=== PATIENT | female | born 1960 | race Caucasian/White ===

== ENCOUNTER 2018-09-05 07:18 | Emergency (ER) | payer MEDICAID, OTHER ==
--- NOTE | 2018-09-05 07:25 | EDM.PDOC ---
ED HPI GENERAL MEDICAL PROBLEM - General Chief Complaint: Chest Pain Stated Complaint: BLOOD PRESSURE IS HIGH Time Seen by Provider: 09/05/18 07:19 Source of Information: Reports: Patient History Limitations: Reports: No Limitations - History of Present Illness INITIAL COMMENTS - FREE TEXT/NARRATIVE: History of present illness: []Patient arrives with an episode of high blood pressure this morning with less than 5 minute episode of chest pain which she states she has every morning. Pressure was 170s/100. Patient denies any sweating, shortness of breath, dizziness, syncope or any other symptoms. On arrival to the ER patient has no pain and feels normal. She would like to be checked out and is requesting a prescription refill for her nitroglycerin Review of systems: As per history of present illness and below otherwise all systems reviewed and negative. Past medical history: As per history of present illness and as reviewed below otherwise noncontributory. Surgical history: As per history of present illness and as reviewed below otherwise noncontributory. Social history: No reported history of drug or alcohol abuse. Family history: As per history of present illness and as reviewed below otherwise noncontributory. Physical exam: General: Well developed, well nourished in NAD HEENT: Atraumatic, normocephalic, pupils reactive, negative for conjunctival pallor or scleral icterus, mucous membranes moist, throat clear, neck supple, nontender, trachea midline. Lungs: Clear to auscultation, breath sounds equal bilaterally, chest nontender. Heart: S1S2, regular, negative for clicks, rubs, or JVD. Abdomen: NABS, Soft, nondistended, nontender. Negative for masses or hepatosplenomegaly. Negative for costovertebral tenderness. Pelvis: Stable nontender. Genitourinary: Deferred. Rectal: Deferred. Extremities: Atraumatic, negative for cords or calf pain. Neurovascular unremarkable. Neuro: Awake, alert, oriented. Cranial nerves II through XII unremarkable. Cerebellum unremarkable. Motor and sensory unremarkable throughout. Exam nonfocal. Skin:warm and dry Diagnostics: CBC, chemistry, troponin, EKG. Patient has incidental elevated alkaline phosphatase, however no abdominal pain Therapeutics: Clonidine by mouth ED Course: Improved with pressure Impression: Uncontrolled hypertension, med refill Prescriptions: Nitroglycerin Plan: Follow-up with primary care return if symptoms worsen or change. Definitive disposition and diagnosis as appropriate pending reevaluation and review of above. - Related Data Allergies Allergy/AdvReac Type Severity Reaction Status Date / Time Penicillins Allergy Cannot Verified 09/05/18 07:22 Remember Home Meds: Home Meds Aspirin [Halfprin] 81 mg PO DAILY 07/25/18 [History] Clopidogrel [Plavix] 75 mg PO DAILY 07/25/18 [History] Isosorbide Mononitrate [Imdur] 120 mg PO DAILY 07/25/18 [History] Metoprolol Tartrate 50 mg PO BID 07/25/18 [History] Ondansetron [Zofran] 8 mg PO Q8H PRN 07/25/18 [History] Ranitidine HCl [Heartburn Relief] 75 mg PO ASDIRECTED 07/25/18 [History] Ranolazine [Ranexa] 1,000 mg PO BID 07/25/18 [History] atorvaSTATin Calcium [Atorvastatin Calcium] 80 mg PO DAILY 07/25/18 [History] Nitroglycerin [Nitrostat] 1 tab ASDIRECTED PRN 08/11/18 [History] Nitroglycerin 0.4 mg SL ASDIRECTED PRN #1 bottle 09/05/18 [Rx] Past Medical History Cardiovascular History: Reports: Angina, High Cholesterol, Hypertension, Stents Gastrointestinal History: Reports: [employer]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 ED EXAM, GENERAL - Physical Exam Exam: See Below (See history of present illness) Course - Vital Signs Last Recorded V/S: Last Vital Signs Temp 97.2 F 09/05/18 08:33 Pulse 63 09/05/18 08:33 Resp 10 L 09/05/18 08:33 BP 124/75 09/05/18 08:33 Pulse Ox 94 L 09/05/18 08:33 - Orders/Labs/Meds Orders: Active Orders 24 hr Category Date Time Status EKG Documentation Completion [RC] STAT Care 09/05/18 07:28 Active Sodium Chloride 0.9% [Saline Flush] Med 09/05/18 07:29 Active 10 ml FLUSH ASDIRECTED PRN Sodium Chloride 0.9% [Saline Flush] Med 09/05/18 07:29 Active 2.5 ml FLUSH ASDIRECTED PRN Saline Lock Insert [OM.PC] Stat Oth 09/05/18 07:28 Ordered Medication Orders Sodium Chloride (Saline Flush) 10 ml FLUSH ASDIRECTED PRN PRN Reason: Keep Vein Open Sodium Chloride (Saline Flush) 2.5 ml FLUSH ASDIRECTED PRN PRN Reason: Keep Vein Open Labs: Laboratory Tests 09/05/18 09/05/18 Range/Units 07:30 07:30 WBC 6.90 (4.0-11.0) K/uL RBC 3.12 L (4.30-5.90) M/uL Hgb 9.9 L (12.0-16.0) g/dL Hct 30.6 L (36.0-46.0) % MCV 98.1 H (80.0-98.0) fL MCH 31.7 (27.0-32.0) pg MCHC 32.4 (31.0-37.0) g/dL RDW Std Deviation 45.7 (28.0-62.0) fl RDW Coeff of Salo 13 (11.0-15.0) % Plt Count 192 (150-400) K/uL MPV 10.60 (7.40-12.00) fL Neut % (Auto) 55.5 (48.0-80.0) % Lymph % (Auto) 29.4 (16.0-40.0) % Duchesne % (Auto) 8.8 (0.0-15.0) % Eos % (Auto) 5.7 (0.0-7.0) % Baso % (Auto) 0.6 (0.0-1.5) % Neut # (Auto) 3.8 (1.4-5.7) K/uL Lymph # (Auto) 2.0 (0.6-2.4) K/uL Duchesne # (Auto) 0.6 (0.0-0.8) K/uL Eos # (Auto) 0.4 (0.0-0.7) K/uL Baso # (Auto) 0.0 (0.0-0.1) K/uL Sodium 140 (136-145) mmol/L Potassium 4.3 (3.5-5.1) mmol/L Chloride 106 (98-107) mmol/L Carbon Dioxide 26.0 (21.0-32.0) mmol/L BUN 24 H (7.0-18.0) mg/dL Creatinine 1.9 H (0.6-1.0) mg/dL Est Cr Clr Drug Dosing 23.22 mL/min Estimated GFR (MDRD) 27.0 ml/min Glucose 87 (74-106) mg/dL Calcium 9.6 (8.5-10.1) mg/dL Total Bilirubin 0.3 (0.2-1.0) mg/dL AST 21 (15-37) IU/L ALT 40 (14-63) IU/L Alkaline Phosphatase 236 H (46-116) U/L Troponin I < 0.050 (0.000-0.056) ng/mL Total Protein 7.2 (6.4-8.2) g/dL Albumin 3.4 (3.4-5.0) g/dL Globulin 3.8 (2.6-4.0) g/dL Albumin/Globulin Ratio 0.9 (0.9-1.6) Meds: Medications Generic Name Dose Route Start Last Admin Trade Name Freq PRN Reason Stop Dose Admin Sodium Chloride 10 ml 09/05/18 07:29 Saline Flush FLUSH ASDIRECTED PRN Keep Vein Open Sodium Chloride 2.5 ml 09/05/18 07:29 Saline Flush FLUSH ASDIRECTED PRN Keep Vein Open Discontinued Medications Generic Name Dose Route Start Last Admin Trade Name Freq PRN Reason Stop Dose Admin Clonidine HCl 0.2 mg 09/05/18 07:33 09/05/18 07:44 Catapres PO 09/05/18 07:34 0.2 mg ONETIME ONE Administration Departure - Departure Time of Disposition: 08:40 Disposition: Home, Self-Care 01 Condition: Good Clinical Impression: Medication refill Prescriptions: Nitroglycerin 0.4 mg SL ASDIRECTED PRN #1 bottle PRN Reason: Chest Pain Referrals: PCP,None [Primary Care Provider] - Forms: ED Department Discharge Additional Instructions: The following information is given to patients seen in the emergency department who are being discharged to home. This information is to outline your options for follow-up care. We provide all patients seen in our emergency department with a follow-up referral. The need for follow-up, as well as the timing and circumstances, are variable depending upon the specifics of your emergency department visit. If you don't have a primary care physician on staff, we will provide you with a referral. We always advise you to contact your personal physician following an emergency department visit to inform them of the circumstance of the visit and for follow-up with them and/or the need for any referrals to a consulting specialist. The emergency department will also refer you to a specialist when appropriate. This referral assures that you have the opportunity for follow-up care with a specialist. All of these measure are taken in an effort to provide you with optimal care, which includes your follow-up. Under all circumstances we always encourage you to contact your private physician who remains a resource for coordinating your care. When calling for follow-up care, please make the office aware that this follow-up is from your recent emergency room visit. If for any reason you are refused follow-up, please contact the [facility] Emergency Department at and asked to speak to the emergency department charge nurse. [facility] [address] [place] [id number] - My Orders Last 24 Hours: My Active Orders 09/05/18 07:28 EKG Documentation Completion [RC] STAT Saline Lock Insert [OM.PC] Stat 09/05/18 07:29 Sodium Chloride 0.9% [Saline Flush] 10 ml FLUSH ASDIRECTED PRN Sodium Chloride 0.9% [Saline Flush] 2.5 ml FLUSH ASDIRECTED PRN - Assessment/Plan Last 24 Hours: My Active Orders 09/05/18 07:28 EKG Documentation Completion [RC] STAT Saline Lock Insert [OM.PC] Stat 09/05/18 07:29 Sodium Chloride 0.9% [Saline Flush] 10 ml FLUSH ASDIRECTED PRN Sodium Chloride 0.9% [Saline Flush] 2.5 ml FLUSH ASDIRECTED PRN
[2018-09-05] MEDS ORDERED: Sodium Chloride 0.9% 10 ML Syringe FLUSH PRN (07:29)
[2018-09-05] MEDS ORDERED: Sodium Chloride 0.9% 2.5 ML Syringe FLUSH PRN (07:29)
[2018-09-05] MEDS ORDERED: cloNIDine 0.1 MG Tab PO ONE (07:33)
[2018-09-05 08:07] LABS: CHLORIDE,CL 106 mmol/L (98-107); SODIUM,NA 140 mmol/L (136-145)
== END 2018-09-05 08:48 | disposition home or self-care (01) ==
LOC: MW.ED 07:18
DX: I10 Essential (primary) hypertension (principal); Z95.5 Presence of coronary angioplasty implant and graft; Z86.73 Personal history of transient ischemic attack (TIA), and cerebral infarction without residual deficits; Z90.49 Acquired absence of other specified parts of digestive tract; Z90.710 Acquired absence of both cervix and uterus; Z79.82 Long term (current) use of aspirin; Z79.899 Other long term (current) drug therapy; Z88.0 Allergy status to penicillin
CPT/HCPCS: 36415; 80053; 84484; 85025; 99284; A9270

== ENCOUNTER 2018-09-20 07:16 | Observation (INO) | payer OTHER ==
[2018-09-20] MEDS ORDERED: Nitroglycerin 2% Oint 1 GM UD Packet TOP ONE (07:31)
--- NOTE | 2018-09-20 07:41 | EDM.PDOC ---
ED HPI GENERAL MEDICAL PROBLEM - General Chief Complaint: Chest Pain Stated Complaint: CHEST PAINS Time Seen by Provider: 09/20/18 07:29 - History of Present Illness INITIAL COMMENTS - FREE TEXT/NARRATIVE: HISTORY AND PHYSICAL: History of present illness: Patient is a 58-year-old white female from extensive past medical history including NC 2 cardiac stent placement hypertension hypercholesterolemia and renal insufficiency who presents with a concern of chest pain this is responded temporarily to nitroglycerin for which she's taken a total of 4 she has taken aspirin today. On arrival here she still does have some residual chest discomfort she describes as midsternal without associated symptoms. Review of systems: As per history of present illness and below otherwise all systems reviewed and negative. Past medical history: As per history of present illness and as reviewed below otherwise noncontributory. Surgical history: As per history of present illness and as reviewed below otherwise noncontributory. Social history: No reported history of drug or alcohol abuse. Family history: As per history of present illness and as reviewed below otherwise noncontributory. Physical exam: HEENT: Atraumatic, normocephalic, pupils reactive, negative for conjunctival pallor or scleral icterus, mucous membranes moist, throat clear, neck supple, nontender, trachea midline. Lungs: Clear to auscultation, breath sounds equal bilaterally, chest nontender. Heart: S1S2, regular, negative for clicks, rubs, or JVD. Abdomen: Soft, nondistended, nontender. Negative for masses or hepatosplenomegaly. Negative for costovertebral tenderness. Pelvis: Stable nontender. Genitourinary: Deferred. Rectal: Deferred. Extremities: Atraumatic, negative for cords or calf pain. Neurovascular unremarkable. Neuro: Awake, alert, oriented. Cranial nerves II through XII unremarkable. Cerebellum unremarkable. Motor and sensory unremarkable throughout. Exam nonfocal. Diagnostics: CBC CMP troponin PT/INR chest x-ray EKG Therapeutics: IV O2 monitor Nitropaste 1 inch to chest wall morphine sulfate 2 mg IV when necessary and Zofran 4 mg IV Impression: #1 chest pain #2 history of hypertension #3 history coronary artery disease with NC 2 and stent placement #4 history of hypercholesterolemia #5 history renal insufficiency Definitive disposition and diagnosis as appropriate pending reevaluation and review of above. chest Pain Score (Numeric/FACES): 10 - Related Data Allergies Allergy/AdvReac Type Severity Reaction Status Date / Time Penicillins Allergy Cannot Verified 09/20/18 07:30 Remember Home Meds: Home Meds Aspirin [Halfprin] 81 mg PO DAILY 07/25/18 [History] Clopidogrel [Plavix] 75 mg PO DAILY 07/25/18 [History] Isosorbide Mononitrate [Imdur] 120 mg PO DAILY 07/25/18 [History] Metoprolol Tartrate 50 mg PO BID 07/25/18 [History] Ondansetron [Zofran] 8 mg PO Q8H PRN 07/25/18 [History] Ranitidine HCl [Heartburn Relief] 75 mg PO ASDIRECTED 07/25/18 [History] Ranolazine [Ranexa] 1,000 mg PO BID 07/25/18 [History] atorvaSTATin Calcium [Atorvastatin Calcium] 80 mg PO DAILY 07/25/18 [History] Nitroglycerin [Nitrostat] 1 tab ASDIRECTED PRN 08/11/18 [History] Nitroglycerin 0.4 mg SL ASDIRECTED PRN #1 bottle 09/05/18 [Rx] Past Medical History HEENT History: Reports: None Cardiovascular History: Reports: Angina, High Cholesterol, Hypertension, NC, Stents Respiratory History: Reports: None Gastrointestinal History: Reports: GERD Genitourinary History: Reports: None [employer]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: Musculoskeletal History: Reports: None Neurological History: Reports: CVA Psychiatric History: Reports: None Endocrine/Metabolic History: Reports: None Hematologic History: Reports: Anticoagulation Therapy Immunologic History: Reports: None Oncologic (Cancer) History: Reports: None Dermatologic History: Reports: None - Infectious Disease History Infectious Disease History: Reports: Chicken Pox, Measles - Past Surgical History Head Surgeries/Procedures: Reports: None HEENT Surgical History: Reports: None Cardiovascular Surgical History: Reports: None Respiratory Surgical History: Reports: None GI Surgical History: Reports: Cholecystectomy Female Surgical History: Reports: Hysterectomy Endocrine Surgical History: Reports: None Neurological Surgical History: Reports: None Musculoskeletal Surgical History: Reports: None Oncologic Surgical History: Reports: None Dermatological Surgical History: Reports: None Social & Family History - Family History Family Medical History: Noncontributory - Tobacco Use Smoking Status *Q: Current Every Day Smoker Years of Tobacco use: 36 Packs/Tins Daily: 0.5 - Caffeine Use Caffeine Use: Reports: None - Recreational Drug Use Recreational Drug Use: No ED ROS GENERAL - Review of Systems Review Of Systems: ROS reveals no pertinent complaints other than HPI. ED EXAM, GENERAL - Physical Exam Exam: See Below (See dictation) Course - Vital Signs Text/Narrative:: Patient's emergency department course is unremarkable she remains pain-free status post nitro paste she is not interested in transferred this time but does agree to admission for observation here Last Recorded V/S: Last Vital Signs Temp 36.3 C 09/20/18 07:28 Pulse 77 09/20/18 07:28 Resp 18 09/20/18 07:28 BP 188/109 H 09/20/18 07:28 Pulse Ox 98 09/20/18 07:28 - Orders/Labs/Meds Orders: Active Orders 24 hr Category Date Time Status EKG Documentation Completion [RC] STAT Care 09/20/18 07:31 Active Labs: Laboratory Tests 09/20/18 09/20/18 09/20/18 Range/Units 07:40 07:40 07:40 WBC 9.53 (4.0-11.0) K/uL RBC 3.16 L (4.30-5.90) M/uL Hgb 9.9 L (12.0-16.0) g/dL Hct 30.3 L (36.0-46.0) % MCV 95.9 (80.0-98.0) fL MCH 31.3 (27.0-32.0) pg MCHC 32.7 (31.0-37.0) g/dL RDW Std Deviation 49.0 (28.0-62.0) fl RDW Coeff of Salo 14 (11.0-15.0) % Plt Count 217 (150-400) K/uL MPV 9.90 (7.40-12.00) fL Neut % (Auto) 71.2 (48.0-80.0) % Lymph % (Auto) 15.4 L (16.0-40.0) % Thomas % (Auto) 8.0 (0.0-15.0) % Eos % (Auto) 5.1 (0.0-7.0) % Baso % (Auto) 0.3 (0.0-1.5) % Neut # (Auto) 6.8 H (1.4-5.7) K/uL Lymph # (Auto) 1.5 (0.6-2.4) K/uL Thomas # (Auto) 0.8 (0.0-0.8) K/uL Eos # (Auto) 0.5 (0.0-0.7) K/uL Baso # (Auto) 0.0 (0.0-0.1) K/uL Nucleated RBC % 0.0 /100WBC Nucleated RBCs # 0 K/uL INR 0.92 Sodium 140 (136-145) mmol/L Potassium 4.6 (3.5-5.1) mmol/L Chloride 106 (98-107) mmol/L Carbon Dioxide 23.7 (21.0-32.0) mmol/L BUN 34 H (7.0-18.0) mg/dL Creatinine 2.2 H (0.6-1.0) mg/dL Est Cr Clr Drug Dosing 20.45 mL/min Estimated GFR (MDRD) 22.8 ml/min Glucose 111 H (74-106) mg/dL Calcium 10.0 (8.5-10.1) mg/dL Total Bilirubin 0.2 (0.2-1.0) mg/dL AST 10 L (15-37) IU/L ALT 18 (14-63) IU/L Alkaline Phosphatase 128 H (46-116) U/L Troponin I < 0.050 (0.000-0.056) ng/mL Total Protein 7.4 (6.4-8.2) g/dL Albumin 3.3 L (3.4-5.0) g/dL Globulin 4.1 H (2.6-4.0) g/dL Albumin/Globulin Ratio 0.8 L (0.9-1.6) Meds: Medications Discontinued Medications Generic Name Dose Route Start Last Admin Trade Name Freq PRN Reason Stop Dose Admin Morphine Sulfate 2 mg 09/20/18 07:42 09/20/18 07:55 Morphine IVPUSH 09/20/18 07:43 2 mg ONETIME ONE Administration Nitroglycerin 1 gm 09/20/18 07:31 09/20/18 07:51 Nitro-Bid 2% TOP 09/20/18 07:32 1 gm ONETIME ONE Administration Ondansetron HCl 4 mg 09/20/18 07:42 09/20/18 07:56 Zofran IVPUSH 09/20/18 07:43 4 mg ONETIME ONE Administration Departure - Departure Time of Disposition: 09:02 Disposition: Refer to Observation Condition: Good Clinical Impression: Chest pain - Discharge Information Referrals: PCP,None [Primary Care Provider] - Forms: ED Department Discharge - My Orders Last 24 Hours: My Active Orders 09/20/18 07:31 EKG Documentation Completion [RC] STAT - Assessment/Plan Last 24 Hours: My Active Orders 09/20/18 07:31 EKG Documentation Completion [RC] STAT
[2018-09-20] MEDS ORDERED: Ondansetron 4 MG/2 ML SDV IVPUSH ONE (07:42)
[2018-09-20] MEDS ORDERED: Morphine 2 MG/ML Syringe IVPUSH ONE (07:42)
--- NOTE | 2018-09-20 08:07 | CR ---
INDICATION: Chest pain. TECHNIQUE: Portable chest. COMPARISON: 08/19/2018 and 07/25/2018. FINDINGS: External monitoring leads are seen overlying the patient. Heart and mediastinum are unremarkable. Probable mild atelectasis at the lung bases. No large consolidations or pleural effusions. No pneumothorax. IMPRESSION: No evidence of acute disease. Dictated by Ugo Anguiano MD @ Sep 20 2018 8:04AM Signed by Dr. Ugo Anguiano @ Sep 20 2018 8:06AM
[2018-09-20 08:29] LABS: CHLORIDE,CL 106 mmol/L (98-107); SODIUM,NA 140 mmol/L (136-145)
[2018-09-20] MEDS ORDERED: Famotidine 20 MG Tab PO SCH (10:45)
--- NOTE | 2018-09-20 11:23 | PCM.HP ---
H&P History of Present Illness - General Date of Service: 09/20/18 Admit Problem/Dx: Admission Diagnosis/Problem Admission Diagnosis/Problem Chest pain - History of Present Illness Initial Comments - Free Text/Narative: 58F with extensive cardiac history including STEMI, CAD, cardiac stent placement , angina, HTN that presented to the ER with a chief complaint of chest pain that began earlier today not relieved by 4 nitros. She tells me that she had an MN in June that she was flown out to [facility], which was medically treated. Since then, she has ongoing chest pain that occurs regularly, which typically does respond to 1-2 nitros. Currently, she is comfortable, she denies having any active chest pain, shortness of breath. She does complain of a headache which may be secondary to the significant nitro she has taken. Her headache is mild, denying and numbness/tingling/nausea or vomiting. chest Pain Score (Numeric/FACES): 10 - Related Data Allergies/Adverse Reactions: Allergies Allergy/AdvReac Type Severity Reaction Status Date / Time Penicillins Allergy Cannot Verified 09/20/18 07:30 Remember Home Medications: Home Meds Aspirin [Halfprin] 81 mg PO DAILY 07/25/18 [History] Clopidogrel [Plavix] 75 mg PO DAILY 07/25/18 [History] Isosorbide Mononitrate [Imdur] 120 mg PO DAILY 07/25/18 [History] Metoprolol Tartrate 50 mg PO BID 07/25/18 [History] Ondansetron [Zofran] 8 mg PO Q8H PRN 07/25/18 [History] Ranitidine HCl [Heartburn Relief] 75 mg PO ASDIRECTED 07/25/18 [History] Ranolazine [Ranexa] 1,000 mg PO BID 07/25/18 [History] atorvaSTATin Calcium [Atorvastatin Calcium] 80 mg PO DAILY 07/25/18 [History] Nitroglycerin [Nitrostat] 1 tab ASDIRECTED PRN 08/11/18 [History] Nitroglycerin 0.4 mg SL ASDIRECTED PRN #1 bottle 09/05/18 [Rx] Past Medical History HEENT History: Reports: None Cardiovascular History: Reports: Angina, High Cholesterol, Hypertension, MN, Stents Respiratory History: Reports: None Gastrointestinal History: Reports: GERD Genitourinary History: Reports: None 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: Musculoskeletal History: Reports: None Neurological History: Reports: CVA Psychiatric History: Reports: None Endocrine/Metabolic History: Reports: None Hematologic History: Reports: Anticoagulation Therapy Immunologic History: Reports: None Oncologic (Cancer) History: Reports: None Dermatologic History: Reports: None - Infectious Disease History Infectious Disease History: Reports: Chicken Pox, Measles - Past Surgical History Head Surgeries/Procedures: Reports: None HEENT Surgical History: Reports: None Cardiovascular Surgical History: Reports: None Respiratory Surgical History: Reports: None GI Surgical History: Reports: Cholecystectomy Female Surgical History: Reports: Hysterectomy Endocrine Surgical History: Reports: None Neurological Surgical History: Reports: None Musculoskeletal Surgical History: Reports: None Oncologic Surgical History: Reports: None Dermatological Surgical History: Reports: None Social & Family History - Family History Family Medical History: Noncontributory - Tobacco Use Smoking Status *Q: Current Every Day Smoker Years of Tobacco use: 36 Packs/Tins Daily: 0.5 - Caffeine Use Caffeine Use: Reports: None - Recreational Drug Use Recreational Drug Use: No H&P Review of Systems - Review of Systems: Review Of Systems: See Below General: Reports: No Symptoms HEENT: Reports: No Symptoms Pulmonary: Reports: No Symptoms Cardiovascular: Reports: Other (see hpi) Gastrointestinal: Reports: No Symptoms Genitourinary: Reports: No Symptoms Musculoskeletal: Reports: No Symptoms Skin: Reports: No Symptoms Psychiatric: Reports: No Symptoms Neurological: Reports: No Symptoms Hematologic/Lymphatic: Reports: No Symptoms Immunologic: Reports: No Symptoms Exam - Exam Exam: See Below - Vital Signs Vital Signs: Last Vital Signs Temp 36.3 C 09/20/18 07:28 Pulse 68 09/20/18 10:33 Resp 17 09/20/18 10:33 BP 153/77 H 09/20/18 10:33 Pulse Ox 94 L 09/20/18 10:33 Weight: 47.627 kg - Exam General: Alert, Oriented, 4 HEENT: PERRLA, Hearing Intact, Mucosa Moist & [place], Nares Patent, Normal Nasal Septum, Posterior Pharynx Clear, Conjunctiva Clear, EOMI, EACs Clear, TMs Clear Neck: Supple, Trachea Midline, 2 Lungs: Clear to Auscultation, Normal Respiratory Effort Cardiovascular: Regular Rate, Regular Rhythm GI/Abdominal Exam: Normal Bowel Sounds, Soft, Non-Tender, No Organomegaly, No Distention, No Abnormal Bruit, No Mass, Pelvis Stable Back Exam: Normal Inspection, Full Range of Motion, NT Extremities: Normal Inspection, Normal Range of Motion, Non-Tender, No Pedal Edema, Normal Capillary Refill Peripheral Pulses: 2+: Dorsalis Pedis (L), Dorsalis Pedis (R) Skin: Warm, Dry, Intact Neuro Extensive - Mental Status: Alert, Oriented x3, Normal Mood/Affect, Normal Cognition Neuro Extensive - Motor, Sensory, Reflexes: CN II-XII Intact, Normal Gait, Normal Reflexes Psychiatric: Alert, Normal Affect, Normal Mood - Patient Data Lab Results Last 24 hrs: Laboratory Results - last 24 hr 09/20/18 09/20/18 09/20/18 Range/Units 07:40 07:40 07:40 WBC 9.53 (4.0-11.0) K/uL RBC 3.16 L (4.30-5.90) M/uL Hgb 9.9 L (12.0-16.0) g/dL Hct 30.3 L (36.0-46.0) % MCV 95.9 (80.0-98.0) fL MCH 31.3 (27.0-32.0) pg MCHC 32.7 (31.0-37.0) g/dL RDW Std Deviation 49.0 (28.0-62.0) fl RDW Coeff of Salo 14 (11.0-15.0) % Plt Count 217 (150-400) K/uL MPV 9.90 (7.40-12.00) fL Neut % (Auto) 71.2 (48.0-80.0) % Lymph % (Auto) 15.4 L (16.0-40.0) % Riley % (Auto) 8.0 (0.0-15.0) % Eos % (Auto) 5.1 (0.0-7.0) % Baso % (Auto) 0.3 (0.0-1.5) % Neut # (Auto) 6.8 H (1.4-5.7) K/uL Lymph # (Auto) 1.5 (0.6-2.4) K/uL Riley # (Auto) 0.8 (0.0-0.8) K/uL Eos # (Auto) 0.5 (0.0-0.7) K/uL Baso # (Auto) 0.0 (0.0-0.1) K/uL Nucleated RBC % 0.0 /100WBC Nucleated RBCs # 0 K/uL INR 0.92 Sodium 140 (136-145) mmol/L Potassium 4.6 (3.5-5.1) mmol/L Chloride 106 (98-107) mmol/L Carbon Dioxide 23.7 (21.0-32.0) mmol/L BUN 34 H (7.0-18.0) mg/dL Creatinine 2.2 H (0.6-1.0) mg/dL Est Cr Clr Drug Dosing 20.45 mL/min Estimated GFR (MDRD) 22.8 ml/min Glucose 111 H (74-106) mg/dL Calcium 10.0 (8.5-10.1) mg/dL Total Bilirubin 0.2 (0.2-1.0) mg/dL AST 10 L (15-37) IU/L ALT 18 (14-63) IU/L Alkaline Phosphatase 128 H (46-116) U/L Troponin I < 0.050 (0.000-0.056) ng/mL Total Protein 7.4 (6.4-8.2) g/dL Albumin 3.3 L (3.4-5.0) g/dL Globulin 4.1 H (2.6-4.0) g/dL Albumin/Globulin Ratio 0.8 L (0.9-1.6) Result Diagrams: 09/20/18 07:40 09/20/18 07:40 Problem List Initiated/Reviewed/Updated: Yes Orders Last 24hrs: Active Orders 24 hr Category Date Time Status Patient Status [ADT] Stat ADT 09/20/18 09:04 Active Cardiac Monitoring [RC] CONTINUOUS Care 09/20/18 10:31 Ordered EKG Documentation Completion [RC] STAT Care 09/20/18 07:31 Active Oxygen Therapy [RC] PRN Care 09/20/18 10:31 Ordered Up ad Tamika [RC] ASDIRECTED Care 09/20/18 10:31 Ordered VTE/DVT Education [RC] PER UNIT ROUTINE Care 09/20/18 10:31 Ordered Vital Signs [RC] Q4H Care 09/20/18 10:31 Ordered Heart Healthy Diet [DIET] Diet 09/20/18 Lunch Ordered BASIC METABOLIC PANEL,BMP [CHEM] AM Lab 09/21/18 05:11 Ordered TROPONIN I [CHEM] Q6H Lab 09/20/18 13:40 Ordered TROPONIN I [CHEM] Q6H Lab 09/20/18 19:40 Ordered Acetaminophen [Tylenol] Med 09/20/18 10:31 Ordered 650 mg PO Q4H PRN Aspirin [Halfprin] Med 09/21/18 09:00 Ordered 81 mg PO DAILY Clopidogrel [Plavix] Med 09/21/18 09:00 Ordered 75 mg PO DAILY Enoxaparin [Lovenox] Med 09/20/18 10:45 Ordered 30 mg SUBCUT Q24H Isosorbide Mononitrate [Imdur] Med 09/21/18 09:00 Ordered 120 mg PO DAILY Metoprolol Tartrate [Lopressor] Med 09/20/18 21:00 Ordered 50 mg PO BID Ondansetron [Zofran] Med 09/20/18 10:31 Ordered 4 mg IVPUSH Q4H PRN Ranitidine HCl [Heartburn Relief] Med 09/20/18 10:45 Ordered 75 mg PO ASDIRECTED Ranolazine Med 09/20/18 21:00 Ordered 1,000 mg PO BID atorvaSTATin Calcium [Atorvastatin Calcium] Med 09/21/18 09:00 Ordered 80 mg PO DAILY Sequential Compression Device [OM.PC] Per Unit Routine Oth 09/20/18 10:31 Ordered Resuscitation Status Routine Resus Stat 09/20/18 10:31 Ordered Medication Orders Acetaminophen (Tylenol) 650 mg PO Q4H PRN PRN Reason: Pain (Mild 1-3)/fever Aspirin (Halfprin) 81 mg PO DAILY [facility] Atorvastatin Calcium (Lipitor) 80 mg PO DAILY [facility] Clopidogrel Bisulfate (Plavix) 75 mg PO DAILY [facility] Enoxaparin Sodium (Lovenox) 30 mg SUBCUT Q24H [facility] Famotidine (Pepcid) 40 mg PO ASDIRECTED [facility] Isosorbide Mononitrate (Imdur) 120 mg PO DAILY [facility] Metoprolol Tartrate (Lopressor) 50 mg PO BID [facility] Ondansetron HCl (Zofran) 4 mg IVPUSH Q4H PRN PRN Reason: Nausea Ranolazine (Ranexa) 1,000 mg PO BID [facility] Assessment/Plan Comment:: Assessment: #1. ACS rule out #2. Chest pain #3. Hypertension #4. CKD #5. History of CAD, MN, stent placement, HLD, HTN, tobacco abuse Plan: #1. Admit for observation. Vitals per floor. SCD+Lovenox for DVT Prophylaxis #2. Troponin q6h x3 - initial lab negative #3. Cardiac telemetry #4. Heart healthy diet #5. Resume home meds #6. Amlodipine 5mg PO for HTN
[2018-09-20] MEDS: Acetaminophen 325 MG Tab PO PRN ×2 (11:34→19:39)
[2018-09-20] MEDS: Enoxaparin 30 MG/0.3 ML Syringe SUBCUT SCH (11:36)
[2018-09-20] MEDS ORDERED: amLODIPine 5 MG Tab PO ONE (12:21)
[2018-09-20] MEDS: Ondansetron 4 MG/2 ML SDV IVPUSH PRN (19:39)
[2018-09-20] MEDS ORDERED: RANOLAZINE 1000 MG PO SCH (21:00)
[2018-09-20] MEDS: Metoprolol Tartrate 50 MG Tab PO SCH (21:19)
[2018-09-21] MEDS: Acetaminophen 325 MG Tab PO PRN (05:16)
[2018-09-21] MEDS: Ondansetron 4 MG/2 ML SDV IVPUSH PRN (08:10)
[2018-09-21] MEDS: Metoprolol Tartrate 50 MG Tab PO SCH (08:15)
[2018-09-21] MEDS ORDERED: Aspirin 81 MG Tab.EC PO SCH (09:00)
[2018-09-21] MEDS ORDERED: Clopidogrel 75 MG Tab PO SCH (09:00)
[2018-09-21] MEDS ORDERED: Isosorbide Mononitrate 60 MG Tab.ER PO SCH (09:00)
[2018-09-21] MEDS ORDERED: atorvaSTATin 40 MG Tab PO SCH (09:00)
[2018-09-21] MEDS: Enoxaparin 30 MG/0.3 ML Syringe SUBCUT SCH (11:04)
--- NOTE | 2018-09-21 12:31 | PCM.DCSUM1 ---
Discharge Summary - Hospital Course Free Text/Narrative:: Admission date 09/20/2018 Discharge date 09/21/2018 Admission dx: #1. ACS rule out #2. Hypertension #3. Chest pain #4. Hx of CAD, cardiac stent placement, HTN, angina Discharge dx: #1. ACS ruled out #2. Hypertension #3. Chest pain resolved #4. Hx of CAD, cardiac stent placement, HTN, angina #5. Tobacco use Hospital course: 58F with extensive cardiac hx presented to the ER w/ chief complaint of chest pain not responding to SL nitro. She was admitted for ACS rule out w/ troponin negative x3 and no EKG changes. BP was elevated - she was started on amlodipine which her BP did respond to. 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 She understands and agrees to the plan - Discharge Data Discharge Date: 09/21/18 Discharge Disposition: Home, Self-Care 01 Condition: Fair - Patient Instructions Diet: Heart Healthy Diet Activity: As Tolerated Driving: May Drive Today Showering/Bathing: May Shower Notify Provider of: Fever, Increased Pain, Swelling and Redness, Drainage - Discharge Plan Prescriptions/Med Rec: amLODIPine Besylate [Amlodipine Besylate] 10 mg PO DAILY #30 tablet Home Medications: Home Meds Aspirin [Halfprin] 81 mg PO DAILY 07/25/18 [History] Clopidogrel [Plavix] 75 mg PO DAILY 07/25/18 [History] Isosorbide Mononitrate [Imdur] 120 mg PO DAILY 07/25/18 [History] Metoprolol Tartrate 50 mg PO BID 07/25/18 [History] Ondansetron [Zofran] 8 mg PO Q8H PRN 07/25/18 [History] Ranitidine HCl [Heartburn Relief] 75 mg PO ACBREAKFAST 07/25/18 [History] Ranolazine [Ranexa] 1,000 mg PO BID 07/25/18 [History] atorvaSTATin Calcium [Atorvastatin Calcium] 80 mg PO DAILY 07/25/18 [History] Nitroglycerin [Nitrostat] 1 tab ASDIRECTED PRN 08/11/18 [History] Nitroglycerin 0.4 mg SL ASDIRECTED PRN #1 bottle 09/05/18 [Rx] amLODIPine Besylate [Amlodipine Besylate] 10 mg PO DAILY #30 tablet 09/21/18 [Rx ] Patient Handouts: Nonspecific Chest Pain, [id number], Amlodipine; Telmisartan oral tablets Referrals: [facility] [Outside] Jose Shannon MD [Physician] - 10/23/18 8:00 am Stan Garcia MD [Ordering Only Provider] - 10/04/18 1:00 pm - Discharge Summary/Plan Comment DC Time >30 min.: No - Patient Data Vitals - Most Recent: Last Vital Signs Temp 36.6 C 09/21/18 07:50 Pulse 72 09/21/18 08:15 Resp 16 09/21/18 07:50 BP 162/84 H 09/21/18 08:15 Pulse Ox 92 L 09/21/18 07:50 Weight - Most Recent: 47.627 kg I&O - Last 24 hours: Intake & Output 09/20/18 09/21/18 09/21/18 22:59 06:59 14:59 Intake Total 650 500 636 Output Total 450 400 600 Balance 200 100 36 Lab Results - Last 24 hrs: Laboratory Results - last 24 hr 09/20/18 09/20/18 09/21/18 Range/Units 13:36 19:45 05:25 Sodium 139 (136-145) mmol/L Potassium 5.4 H (3.5-5.1) mmol/L Chloride 106 (98-107) mmol/L Carbon Dioxide 22.2 (21.0-32.0) mmol/L BUN 33 H (7.0-18.0) mg/dL Creatinine 2.0 H (0.6-1.0) mg/dL Est Cr Clr Drug Dosing 22.49 mL/min Estimated GFR (MDRD) 25.4 ml/min Glucose 104 (74-106) mg/dL Calcium 9.7 (8.5-10.1) mg/dL Troponin I < 0.050 < 0.050 (0.000-0.056) ng/mL Med Orders - Current: Current Medications Discontinued Medications Acetaminophen (Tylenol) 650 mg PO Q4H PRN PRN Reason: Pain (Mild 1-3)/fever Last Admin: 09/21/18 05:16 Dose: 650 mg Amlodipine Besylate (Norvasc) 10 mg PO ONETIME ONE Stop: 09/20/18 12:22 Last Admin: 09/20/18 12:43 Dose: 10 mg Aspirin (Halfprin) 81 mg PO DAILY [facility] Last Admin: 09/21/18 08:15 Dose: 81 mg Atorvastatin Calcium (Lipitor) 80 mg PO DAILY [facility] Last Admin: 09/21/18 08:15 Dose: 80 mg Clopidogrel Bisulfate (Plavix) 75 mg PO DAILY [facility] Last Admin: 09/21/18 08:15 Dose: 75 mg Enoxaparin Sodium (Lovenox) 30 mg SUBCUT Q24H [facility] Last Admin: 09/21/18 11:04 Dose: 30 mg Famotidine (Pepcid) 40 mg PO ASDIRECTED [facility] Isosorbide Mononitrate (Imdur) 120 mg PO DAILY [facility] Last Admin: 09/21/18 08:15 Dose: 120 mg Metoprolol Tartrate (Lopressor) 50 mg PO BID [facility] Last Admin: 09/21/18 08:15 Dose: 50 mg Morphine Sulfate (Morphine) 2 mg IVPUSH ONETIME ONE Stop: 09/20/18 07:43 Last Admin: 09/20/18 07:55 Dose: 2 mg Nitroglycerin (Nitro-Bid 2%) 1 gm TOP ONETIME ONE Stop: 09/20/18 07:32 Last Admin: 09/20/18 07:51 Dose: 1 gm Ondansetron HCl (Zofran) 4 mg IVPUSH ONETIME ONE Stop: 09/20/18 07:43 Last Admin: 09/20/18 07:56 Dose: 4 mg Ondansetron HCl (Zofran) 4 mg IVPUSH Q4H PRN PRN Reason: Nausea Last Admin: 09/21/18 08:10 Dose: 4 mg Ranolazine (Ranexa) 1,000 mg PO BID [facility] Last Admin: 09/20/18 22:49 Dose: Not Given Ranolazine (Ranexa) 1,000 mg PO BID [facility] Last Admin: 09/21/18 08:14 Dose: 1,000 mg
== END 2018-09-21 11:40 | disposition home or self-care (01) ==
LOC: MW.ED 07:16 → MW.MS 10:19
PROVIDERS: ADMIT Internal Medicine; ATTEND Internal Medicine
DX: R07.2 Precordial pain (principal); I25.119 Atherosclerotic heart disease of native coronary artery with unspecified angina pectoris; I12.9 Hypertensive chronic kidney disease with stage 1 through stage 4 chronic kidney disease, or unspecified chronic kidney disease; N18.9 Chronic kidney disease, unspecified; I25.2 Old myocardial infarction; E78.00 Pure hypercholesterolemia, unspecified; F17.210 Nicotine dependence, cigarettes, uncomplicated; K21.9 Gastro-esophageal reflux disease without esophagitis; Z95.5 Presence of coronary angioplasty implant and graft; Z86.73 Personal history of transient ischemic attack (TIA), and cerebral infarction without residual deficits; Z79.82 Long term (current) use of aspirin; Z79.02 Long term (current) use of antithrombotics/antiplatelets; Z79.899 Other long term (current) drug therapy
CPT/HCPCS: 36415; 71045; 80048; 80053; 84484; 85025; 85610; 93005; 96372; 96374; 96375; 96376; 99285; A9270; G0378; J1650; J2270; J2405; 99283